=== PATIENT | female | born 1975 | race Caucasian/White ===

== ENCOUNTER 2022-11-29 07:45 | Day surgery (SDC) | payer BC ==
[2022-11-29 09:12] VITALS: BP 131/85; TEMP 97.3
[2022-11-29] MEDS ORDERED: Iopamidol-M 300 61% 15 ML VIAL ONE (09:53)
[2022-11-29] MEDS ORDERED: Lidocaine 1% PF 5 ML VIAL ONE (09:54)
[2022-11-29] MEDS ORDERED: Sodium Bicarbonate 2.5 MEQ/5 ML VIAL ONE (09:54)
== END 2022-11-29 11:50 | disposition home or self-care (01) ==
LOC: CSHRAD 07:45
PROVIDERS: ATTEND Specialist
PROC: B02BYZZ Computerized Tomography (CT Scan) of Spinal Cord using Other Contrast (ICD-10-PCS; principal; 2022-11-29)
DX: M47.22 Other spondylosis with radiculopathy, cervical region (principal); M51.16 Intervertebral disc disorders with radiculopathy, lumbar region
CPT/HCPCS: 62305; 72126; 72132; Q9967

== ENCOUNTER 2025-04-04 13:38 | Outpatient (CLI) | payer BC ==
[~2025-04-04 13:38] MED LIST: Iopamidol-M 300 61% 15 ML VIAL ONE
[2025-04-04] MEDS ORDERED: Sodium Bicarbonate 2.5 MEQ/5 ML SDV ONE (14:10)
[2025-04-04 14:21] VITALS: BP 129/81; TEMP 96.9
== END 2025-04-04 13:39 | disposition home or self-care (01) ==
LOC: CSHRAD 13:38
PROVIDERS: ATTEND Surgery
DX: M48.02 Spinal stenosis, cervical region (principal); M47.812 Spondylosis without myelopathy or radiculopathy, cervical region
CPT/HCPCS: 62284; 72126; 77003; Q9967